=== PATIENT | male | born 1975 | race Caucasian/White ===

== ENCOUNTER 2021-02-03 12:45 | Outpatient (CLI) | payer OTHER | END 2021-02-03 12:46 | disposition home or self-care (01) | LOC: COV 12:45 | PROVIDERS: ATTEND Family Medicine | DX: Z20.822 Contact with and (suspected) exposure to COVID-19 (principal) ==

== ENCOUNTER 2021-04-13 17:07 | Outpatient (CLI) | payer BC, OTHER | END 2021-04-13 17:08 | disposition home or self-care (01) | LOC: COV 17:07 | PROVIDERS: ATTEND Family Medicine | DX: U07.1 COVID-19 (principal) ==

== ENCOUNTER 2021-08-12 16:46 | Outpatient (CLI) | payer BC ==
--- NOTE | 2021-08-12 17:08 | XRAY Report ---
PROCEDURE: Chest 2 View X-Ray INDICATIONS: COUGH TECHNIQUE: 2 view(s) of the chest. COMPARISON: September 13, 2014 FINDINGS: SUPPORT DEVICES: None. LUNGS/PLEURA: No focal consolidation, pleural effusion or space-occupying pneumothorax. MEDIASTINUM: The cardiomediastinal silhouette is within normal limits. BONES/SOFT TISSUES: No acute abnormality. IMPRESSION: 1.No acute cardiopulmonary abnormality. Reviewed by: Eh Fontana MD on 08/12/2021 5:07 PM PDT Approved by: Eh Fontana MD on 08/12/2021 5:07 PM PDT Station ID: [id number]
== END 2021-08-12 16:47 | disposition home or self-care (01) ==
LOC: DI.S 16:46
PROVIDERS: ATTEND Physician Assistant
DX: R05.9 Cough, unspecified (principal); R50.9 Fever, unspecified